=== PATIENT | female | born 1995 | race Caucasian/White ===

== ENCOUNTER 2017-09-30 16:04 | Inpatient (IN) | payer SELFPAY ==
[~2017-09-30] VITALS: Ht 162.6 cm; Wt 115.7 kg
[2017-09-30 16:50] VITALS: BP 121/71
[2017-09-30] MEDS: RINGERS SOLUTION,LACTATED 1,000 ML IV SCH (18:50)
[2017-10-01] MEDS: RINGERS SOLUTION,LACTATED 1,000 ML IV SCH ×3 (06:10→18:56)
[2017-10-01] MEDS ORDERED: INFLUENZA VIRUS VACCINE QVS 2017-18 (3YR+)/PF 60 MCG/0.5 ML SYRINGE IM ONE (06:30)
[2017-10-01] MEDS ORDERED: RINGERS SOLUTION,LACTATED 1,000 ML IV ONE (06:40)
[2017-10-01] MEDS ORDERED: RINGERS SOLUTION,LACTATED 1,000 ML IV SCH (06:40)
[2017-10-01] MEDS ORDERED: METOCLOPRAMIDE HCL 5 MG/ML 2 ML VIAL IVP ONE (06:45)
[2017-10-01] MEDS ORDERED: CITRIC ACID/SODIUM CITRATE 30 ML SOLUTION UDCUP PO ONE (06:45)
[2017-10-01 07:22] LABS: BASOPHILS # (AUTO) 0.16 K/uL (0.00-0.20); BASOPHILS % (AUTO) 1.5 % (0.0-2.0); EOSINOPHILS # (AUTO) 0.07 K/uL (0.00-0.70); EOSINOPHILS % (AUTO) 0.66 % (1.0-6.0); HEMATOCRIT 33.9 % (36-46); HEMOGLOBIN 11.2 g/dL (12.0-16.0); LYMPHOCYTES # (AUTO) 1.6 K/uL (1.0-4.8); LYMPHOCYTES % (AUTO) 14.7 % (22.0-44.0); MEAN CORPUSCULAR HEMOGLOBIN 25.6 pg (26.0-34.0); MEAN CORPUSCULAR VOLUME 77 fL (80-100); MONOCYTES # (AUTO) 0.5 K/uL (0.1-1.0); MONOCYTES % (AUTO) 4.5 % (2.0-9.0); NEUTROPHILS # (AUTO) 8.7 K/uL (1.8-7.7); NEUTROPHILS % (AUTO) 78.6 % (40.0-70.0); PLATELET COUNT (AUTO)-OB 245 K/uL (150-450); RED BLOOD CELL COUNT(AUTO) 4.38 MIL/uL (4.00-5.20); RED CELL DISTRIBUTION WIDTH 16.4 % (11.5-14.5)
[2017-10-01] MEDS ORDERED: CeFAZolin 2 GM/DEXTROSE 50 ML IV ONE (07:28)
[2017-10-01] MEDS ORDERED: MORPHINE SULFATE/PF 0.5 MG/ML 10 ML AMP ONE (07:29)
[2017-10-01] MEDS ORDERED: FentaNYL CITRATE-PF 100 MCG/2 ML VIAL ONE (07:29)
[2017-10-01] MEDS ORDERED: DEXAMETHASONE SOD PHOS 4 MG/ML VIAL IVP PRN (07:45)
[2017-10-01] MEDS ORDERED: DiphenhydrAMINE HCL 50 MG/ML VIAL IVP PRN ×2 (07:45→08:45)
[2017-10-01] MEDS ORDERED: MEPERIDINE-PF 25 MG/ML SYRINGE IVP PRN (07:45)
[2017-10-01] MEDS ORDERED: ONDANSETRON HCL 4 MG/2 ML VIAL IVP PRN ×2 (07:45→08:45)
[2017-10-01] MEDS ORDERED: DiphenhydrAMINE HCL 50 MG/ML VIAL IM PRN (07:45)
[2017-10-01] MEDS ORDERED: PROMETHAZINE HCL 12.5 MG in SODIUM CHLORIDE 0.9% 50 ML IV PRN (07:45)
[2017-10-01] MEDS ORDERED: NALBUPHINE HCL 10 MG/ML VIAL IVP PRN ×3 (07:45→08:45)
[2017-10-01] MEDS ORDERED: FentaNYL CITRATE-PF 100 MCG/2 ML VIAL IVP PRN ×4 (07:45→08:45)
[2017-10-01] MEDS ORDERED: OXYGEN THERAPY IH SCH ×4 (08:00→20:00)
[2017-10-01] MEDS ORDERED: NALOXONE HCL 0.4 MG/ML VIAL IVP PRN (08:45)
[2017-10-01] MEDS ORDERED: LANOLIN 7 GM OINTMENT TP PRN (11:15)
[2017-10-01] MEDS: KETOROLAC TROMETHAMINE 30 MG/ML VIAL IVP SCH ×2 (14:09→20:36)
[2017-10-01 17:37] LABS: RUBELLA SCREEN (IGG) IMMUNE (IMMUNE)
[2017-10-01] MEDS ORDERED: DiphenhydrAMINE HCL 50 MG/ML VIAL IVP ONE (23:01)
[2017-10-01] MEDS ORDERED: DEXAMETHASONE SOD PHOS 4 MG/ML VIAL IVP ONE (23:01)
[2017-10-01] MEDS ORDERED: OXYTOCIN 10 UNITS/ML VIAL IM ONE (23:01)
[2017-10-01] MEDS ORDERED: KETOROLAC TROMETHAMINE 60 MG/2 ML VIAL IM ONE (23:01)
[2017-10-01] MEDS ORDERED: PHENYLEPHRINE HCL 10 MG/ML VIAL IVP ONE (23:01)
[2017-10-01] MEDS ORDERED: ONDANSETRON HCL 4 MG/2 ML VIAL IVP ONE (23:01)
[2017-10-02] MEDS: RINGERS SOLUTION,LACTATED 1,000 ML IV SCH (02:50)
[2017-10-02 07:47] LABS: BASOPHILS % (AUTO) 0.5 % (0.0-2.0); EOSINOPHILS % (AUTO) 0.5 % (1.0-6.0); HEMATOCRIT 28.4 % (36-46); HEMOGLOBIN 9.4 g/dL (12.0-16.0); LYMPHOCYTES # (AUTO) 2.3 K/uL (1.0-4.8); MEAN CORPUSCULAR HEMOGLOBIN 25.6 pg (26.0-34.0); MEAN CORPUSCULAR HGB CONC 33.1 G/dL (31.0-37.0); MEAN CORPUSCULAR VOLUME 77 fL (80-100); MONOCYTES # (AUTO) 0.7 K/uL (0.1-1.0); MONOCYTES % (AUTO) 5.9 % (2.0-9.0); NEUTROPHILS # (AUTO) 8.6 K/uL (1.8-7.7); NEUTROPHILS % (AUTO) 73.1 % (40.0-70.0); PLATELET COUNT (AUTO)-OB 241 K/uL (150-450); RED BLOOD CELL COUNT(AUTO) 3.67 MIL/uL (4.00-5.20); RED CELL DISTRIBUTION WIDTH 16.2 % (11.5-14.5)
[2017-10-02] MEDS: MAGNESIUM HYDROXIDE SUSPENSION 30 ML UDCUP PO PRN ×2 (09:58→21:06)
[2017-10-02] MEDS: IBUPROFEN 800 MG TABLET PO PRN ×2 (09:58→16:26)
[2017-10-02] MEDS ORDERED: ACETAMINOPHEN/CODEINE 300-30 MG TABLET PO PRN (11:15)
[2017-10-02] MEDS: ACETAMINOPHEN/CODEINE 300-30 MG TABLET PO PRN ×2 (14:42→19:52)
[2017-10-03] MEDS: IBUPROFEN 800 MG TABLET PO PRN ×3 (01:46→21:32)
[2017-10-03] MEDS: ACETAMINOPHEN/CODEINE 300-30 MG TABLET PO PRN (02:34)
[2017-10-03] MEDS: MAGNESIUM HYDROXIDE SUSPENSION 30 ML UDCUP PO PRN ×2 (08:31→21:32)
[2017-10-04] MEDS: IBUPROFEN 800 MG TABLET PO PRN (05:43)
[2017-10-04] MEDS: ACETAMINOPHEN/CODEINE 300-30 MG TABLET PO PRN (08:11)
[2017-10-04] MEDS ORDERED: DSS100 PO (09:57)
[2017-10-04] MEDS ORDERED: IBUP-2070 PO (09:57)
[2017-10-04] MEDS ORDERED: FERR-89 PO (09:58)
[2017-10-04] MEDS ORDERED: PERCT PO (10:00)
== END 2017-10-04 11:10 | disposition home or self-care (01) | DRG 765 ==
LOC: 4S 16:04 → OBSVTOIN 16:04 → 4S 10-01 09:10
PROVIDERS: ADMIT Obstetrics & Gynecology; ATTEND Obstetrics & Gynecology
PROC: 10D00Z1 Extraction of Products of Conception, Low, Open Approach (ICD-10-PCS; principal; 2017-10-01)
DX: O34.211 Maternal care for low transverse scar from previous cesarean delivery (principal); O60.23X0 Term delivery with preterm labor, third trimester, not applicable or unspecified; Z3A.40 40 weeks gestation of pregnancy; Z37.0 Single live birth; O09.33 Supervision of pregnancy with insufficient antenatal care, third trimester; Z79.899 Other long term (current) drug therapy
CPT/HCPCS: 76805; 86592; 86762; 86850; 86900; 86901; 87081; 87340; J0690; J1100; J1200; J1885; J2274; J2300; J2370; J2405; J2590; J2765; J3010; J7120